=== PATIENT | female | born 1965 | race Caucasian/White ===

== ENCOUNTER 2020-04-26 08:55 | Outpatient (CLI) | payer OTHER ==
[2020-04-26] VITALS (17 sets, daily range): BP systolic 101–127; BP diastolic 61–85; PULSE 68–87
[~2020-04-26] VITALS: Ht 165.1 cm; Wt 90.0 kg
[~2020-04-26 08:55] MED LIST: COUMADIN 2MG2 MG/TAB PO; COUMADIN 5MG5 MG/TAB PO; ELIQUIS 2.5 PO; LISINOPRIL/HCTZ1 TAB PO; LOVENOX120 MG/0.8 SC; MOTRIN 600600 MG/TAB PO; MULTIPLE VITAMI1 CAP PO; NATURAL E400 IU PO; TYLENOL 325MG325 MG PO; ZESTORETIC 12.51 TAB PO
--- NOTE | 2020-04-26 10:50 | NUR ---
Report from Joann STOCK. Transferred from Radiology by cart. GALEANO. Bandaid CD&I and pt denies pain , needs and SOA at this time
--- NOTE | 2020-04-26 13:15 | NUR ---
Ok to discharge per Radiologist. INT discontinued intact. Discharge instructions given. Transferred to private car by mathew
== END 2020-04-26 13:30 | disposition home or self-care (01) ==
LOC: COL.RAD 08:55
DX: R91.1 Solitary pulmonary nodule (principal)
CPT/HCPCS: J3010